=== PATIENT | male | born 1950 | race Caucasian/White ===

== ENCOUNTER 2022-10-20 09:37 | Day surgery (SDC) | payer SELFPAY ==
[2022-10-12 11:47] LABS: BASOPHILS # (AUTO) 0.1 X10'3 (0-0.2); BASOPHILS % (AUTO) 1.1 % (0-1); EOSINOPHILS # (AUTO) 0.1 X10'3 (0-0.9); EOSINOPHILS % (AUTO) 2.2 % (0-6); LYMPHOCYTES # (AUTO) 1.2 X10'3 (1.1-4.8); LYMPHOCYTES % (AUTO) 17.5 % (21-51); MEAN CORPUSCULAR HEMOGLOBIN 30.5 PG (27.0-31.0); MEAN CORPUSCULAR HGB CONC 34.2 g/dL (33.0-36.5); MEAN CORPUSCULAR VOLUME 89.4 FL (78-98); MONOCYTES # (AUTO) 0.7 X10'3 (0-0.9); NEUTROPHILS # (AUTO) 4.7 X10'3 (1.8-7.7); NEUTROPHILS % (AUTO) 69.2 % (42-75); PRE OP HEMATOCRIT 46.5 % (42.0-52.0); PRE OP HEMOGLOBIN 15.9 g/dL (14.0-17.9); PRE OP PLATELET COUNT 222 X10'3 (140-440); RED BLOOD COUNT 5.21 X10'6 (4.70-6.10); RED CELL DISTRIBUTION WIDTH 14.1 % (11.5-14.5)
[2022-10-12 12:11] LABS: ALBUMIN 4.2 G/DL (3.4-5.0); ALKALINE PHOSPHATASE 94 IU/L (46-116); BLOOD UREA NITROGEN 25 MG/DL (7-18); BUN/CREATININE RATIO 15.1 (5.4-32.0); CALCIUM 9.2 MG/DL (8.5-10.1); CHLORIDE 103 MMOL/L (99-107); CREATININE 1.66 MG/DL (0.60-1.10); PRE OP ALT 30 U/L (30-65); PRE OP ANION GAP 8 (8-16); PRE OP AST 29 U/L (10-37); PRE OP BILIRUB, TOTAL 0.4 MG/DL (0.0-1.0); PRE OP POTASSIUM 4.4 MMOL/L (3.4-5.1); PRE OP SODIUM 140 MMOL/L (135-145); TOTAL CARBON DIOXIDE 29.2 MMOL/L (24-32); TOTAL PROTEIN 8.4 G/DL (6.4-8.2); eGFR 41 ML/MIN
[2022-10-12 12:15] LABS: PRE OP GLUCOSE 220 MG/DL (70-104)
[2022-10-20] VITALS (15 sets, daily range): BP systolic 130–159; BP diastolic 73–109
[~2022-10-20] VITALS: Ht 177.8 cm; Wt 97.4 kg
[~2022-10-20 09:37] MED LIST: ASPI-1265 PO; LANTUS SQ; LIDOcaine 1% 30ml preserv. free vial ONE; METF-438 PO; TETRACAINE 0.5% 4 ML OPHTHALMIC DROPS ONE; ceFAZolin inj. 2,000 MG in dextrose 5%-water 100 ML IV ONE; epiNEPHrine 1 mg/ml inj ONE; famotidine 20mg tablet PO ONE; ringers solution, lacted 1,000 ML IV SCH
[2022-10-20] MEDS ORDERED: HYDROmorphone/PF 0.2 MG/ML SYRINGE IV PRN ×2 (10:50)
[2022-10-20] MEDS ORDERED: ringers solution, lacted 1,000 ML IV SCH (10:50)
[2022-10-20] MEDS ORDERED: morphine 2 MG/ML inj. syringe IV PRN (10:50)
[2022-10-20] MEDS ORDERED: ondansetron/PF 4mg/2ml inj IV PRN (10:50)
[2022-10-20] MEDS ORDERED: sevoflurane 250ml liquid IH ONE (10:54)
[2022-10-20] MEDS ORDERED: albuterol 60 PUFF/8GM Inhaler IH ONE (10:54)
[2022-10-20] MEDS ORDERED: fentaNYL/PF 50MCG/1 ML 2ML syringe ONE (11:01)
[2022-10-20] MEDS ORDERED: mineral oil/petrolatum ophthal oint EACHEYE ONE (11:34)
[2022-10-20] MEDS ORDERED: LIDOcaine 1% w/EPI 1:100,000 30ml vial (MDV) IJ ONE (11:34)
--- NOTE | 2022-10-20 12:16 | NUR ---
Received from OR via [facility], accompanied by Anesthesiologist and report given by KATY Anesthesiologist. PATIENT WAKING UP, DENIES PAIN, VSS, 20G PIV TO RIGHT FOREARM, BILATERAL UPPER LID SUTURES DRESSING C/D/I. Addendum: 10/20/22 at 1252 by Esau Mobley RN Amended: Links added.
[2022-10-20] MEDS ORDERED: hydrALAZINE 20mg/ml inj. IV PRN (12:35)
[2022-10-20] MEDS ORDERED: dexamethasone sod phosphate 4mg/ml inj. ONE (12:55)
[2022-10-20] MEDS ORDERED: propofol inj 20 ML IV ONE (12:55)
[2022-10-20] MEDS ORDERED: LIDOcaine 1%/PF 5ML 10 MG/ML VIAL ONE (12:55)
[2022-10-20] MEDS ORDERED: ondansetron/PF 4mg/2ml inj ONE (12:55)
--- NOTE | 2022-10-20 14:28 | NUR ---
ALL DISCHARGE CRITERIA HAS BEEN MET. VSS, PAIN AT A TOLERABLE LEVEL, ABLE TO SAFELY AMBULATE AND TRANSFER SELF. IV TAKEN OUT WITHOUT ANY COMPLICATIONS. ALL DISCHARGE INSTRUCTIONS COVERED WITH PATIENT AND ALL QUESTIONS ANSWERED. PATIENT TAKEN OUT VIA WHEELCHAIR WITH ALL BELONGINGS TO PERSONAL VEHICLE WHERE FRIEND DROVE PATIENT HOME. Addendum: 10/20/22 at 1433 by Esau Mobley RN Amended: Links added. Addendum: 10/20/22 at 1442 by Esau Mobley RN ALL DISCHARGE CRITERIA HAS BEEN MET. VSS, PAIN AT A TOLERABLE LEVEL, ABLE TO SAFELY AMBULATE AND TRANSFER SELF. IV TAKEN OUT WITHOUT ANY COMPLICATIONS. ALL DISCHARGE INSTRUCTIONS COVERED WITH PATIENT AND ALL QUESTIONS ANSWERED. PATIENT TAKEN OUT VIA WHEELCHAIR WITH ALL BELONGINGS TO PERSONAL VEHICLE WHERE FAMILY DROVE PATIENT HOME.
== END 2022-10-20 14:36 | disposition home or self-care (01) ==
LOC: PAS 09:37
PROVIDERS: ATTEND Specialist
DX: Z41.1 Encounter for cosmetic surgery (principal); E11.9 Type 2 diabetes mellitus without complications; G47.33 Obstructive sleep apnea (adult) (pediatric); Z72.89 Other problems related to lifestyle; Z98.890 Other specified postprocedural states; Z79.84 Long term (current) use of oral hypoglycemic drugs; Z79.82 Long term (current) use of aspirin; Z79.899 Other long term (current) drug therapy; Z87.891 Personal history of nicotine dependence
CPT/HCPCS: 15821; 21282; 36415; 80053; 82948; 85025; A6402; J0171; J0360; J0690; J1100; J1170; J2270; J2405; J2704; J3010; J3490; J7030; J7060; J7120; Z7506; Z7508; Z7512; A4215; A4618; A6410; A6449; A7000

== ENCOUNTER 2024-05-31 10:15 | Inpatient (IN) | payer OTHER, MEDICARE ==
[~2024-05-31] VITALS: Ht 177.8 cm; Wt 105.4 kg
[~2024-05-31 10:15] MED LIST changes: +LACT1CAP60 PO; -LIDOcaine 1% 30ml preserv. free vial ONE; +LISI20TA28 PO; +PANT-47 PO; +SYN0.088T PO; -TETRACAINE 0.5% 4 ML OPHTHALMIC DROPS ONE; -ceFAZolin inj. 2,000 MG in dextrose 5%-water 100 ML IV ONE; -epiNEPHrine 1 mg/ml inj ONE; -famotidine 20mg tablet PO ONE; -ringers solution, lacted 1,000 ML IV SCH
[2024-05-31 11:12] LABS: BASOPHILS # (AUTO) 0.1 X10'3 (0-0.2); BASOPHILS % (AUTO) 0.8 % (0-1); EOSINOPHILS # (AUTO) 0.3 X10'3 (0-0.9); EOSINOPHILS % (AUTO) 3.2 % (0-6); HEMATOCRIT 42.1 % (42.0-52.0); HEMOGLOBIN 14.2 g/dl (14.0-17.9); LYMPHOCYTES # (AUTO) 1.3 X10'3 (1.1-4.8); LYMPHOCYTES % (AUTO) 13.6 % (21-51); MEAN CORPUSCULAR HEMOGLOBIN 30.8 PG (27.0-31.0); MEAN CORPUSCULAR HGB CONC 33.6 g/dL (33.0-36.5); MEAN CORPUSCULAR VOLUME 91.5 FL (78-98); MEAN PLATELET VOLUME 8.4 FL (7.4-10.4); MONOCYTES # (AUTO) 0.9 X10'3 (0-0.9); MONOCYTES % (AUTO) 9.7 % (2-12); NEUTROPHILS # (AUTO) 6.9 X10'3 (1.8-7.7); NEUTROPHILS % (AUTO) 72.7 % (42-75); PLATELET COUNT 338 X10'3 (140-440); WHITE BLOOD COUNT 9.4 X10'3 (4.5-11.0)
[2024-05-31 11:18] LABS: ALBUMIN 3.1 G/DL (3.4-5.0); ANION GAP 10 (8-16); BLOOD UREA NITROGEN 41 MG/DL (7-18); BUN/CREATININE RATIO 17.6 (10.0-20.0); CALCIUM 9.6 MG/DL (8.5-10.1); CHLORIDE 101 MMOL/L (99-107); CREATININE 2.33 MG/DL (0.60-1.10); GLUCOSE 130 MG/DL (70-104); POTASSIUM 4.3 MMOL/L (3.5-5.1); SODIUM 136 MMOL/L (135-145); TOTAL CARBON DIOXIDE 25.3 MMOL/L (24-32); eCRCL 29 ML/MIN; eGFR 28 ML/MIN
[2024-05-31 12:26] LABS: BILIRUBIN,URINE NEGATIVE (Neg); CLARITY,URINE CLEAR (Clear); COLOR,URINE YELLOW (Yellow); GLUCOSE, URINE NEGATIVE (Neg); KETONES,URINE NEGATIVE (Neg); LEUKOCYTE ESTERASE ,URINE NEGATIVE (Neg); NITRITES, URINE NEGATIVE (Neg); OCCULT BLOOD,URINE NEGATIVE (Neg); PROTEIN,URINE NEGATIVE (Neg); UROBILINOGEN,URINE 0.2 E.U/dL (0.2-1.0)
[2024-05-31] MEDS: normal saline 1000ML IV soln IV ONE (12:28)
[2024-05-31 12:32] LABS: UA COLLECTION TYPE CLN CATCH MIDSTREAM
[2024-05-31] MEDS: vancomycin/NS 1 GM ADD-VANTAGE 250 ML X 1 DOSE IV ONE (12:44)
[2024-05-31] MEDS: cefazolin 2gm/D5W 100mL 100 ML IV ONE (14:26)
[2024-05-31] MEDS: enoxaparin 40mg/0.4ml syringe SUBCUT SCH (14:40)
[2024-05-31] MEDS ORDERED: ondansetron/PF 4mg/2ml inj IV PRN (14:40)
[2024-05-31] MEDS ORDERED: mag hydrox/Alum hydrox/simeth 30ml oral suspension PO PRN (14:40)
[2024-05-31] MEDS ORDERED: potassium Cl 20 mEq SR tablet PO PRN ×2 (14:40)
[2024-05-31] MEDS ORDERED: HYDROcodone/acetaminophen 5mg/325mg tablet PO PRN (14:40)
[2024-05-31] MEDS ORDERED: acetaminophen 325mg tablet PO PRN (14:40)
[2024-05-31] MEDS ORDERED: acetaminophen 650mg rectal suppository RC PRN (14:40)
[2024-05-31] MEDS: docusate sod 100mg capsule PO SCH (16:21)
[2024-05-31] MEDS ORDERED: LANTUS SUBCUT (18:17)
[2024-05-31 19:10] VITALS: BP 134/68; PULSE 65; RESP 16; TEMP 97.9; O2SAT 96
[2024-05-31] MEDS: lisinopril 20mg tablet PO SCH (19:15)
[2024-05-31] MEDS ORDERED: levoTHYROXINE 112mcg tablet PO SCH (19:15)
[2024-05-31] MEDS ORDERED: DEXTROSE 15 GM of carb/4 tabs (each vial/BOTTLE has 4 tablets) PO PRN ×2 (19:20)
[2024-05-31] MEDS ORDERED: dextrose 50%-water 50ml dispensing syringe IV PRN ×2 (19:20)
[2024-05-31] MEDS ORDERED: glucagon, human recombinant 1mg kit SUBCUT PRN (19:20)
[2024-05-31 20:00] VITALS: RESP 18; O2SAT 97
[2024-05-31] MEDS ORDERED: non-formulary drug (Metformin HCl 1 TAB) PO SCH (20:00)
[2024-05-31 20:39] LABS: HEMOGLOBIN A1C 7.6 % (4.5-6.2)
[2024-05-31] MEDS: INSULIN LISPRO 100 UNIT/ML INSULN.PEN MULTI-DOSE SQ SCH (21:00)
[2024-05-31 22:00] VITALS: BP 139/72; PULSE 70; RESP 18; TEMP 97.2; O2SAT 96
[2024-05-31] MEDS: aspirin 81mg tab.chew PO SCH (22:35)
[2024-05-31] MEDS: insulin glargine (Lantus) pen - multi-dose SQ SCH (22:35)
[2024-05-31] MEDS: levoTHYROXINE 25mcg tablet PO SCH (22:36)
[2024-06-01] VITALS (7 sets, daily range): BP systolic 122–150; BP diastolic 71–83; PULSE 55–80; RESP 15–20; TEMP 97.3–98.3; O2SAT 95–98
[2024-06-01] MEDS: normal saline 1000ml 1,000 ML IV SCH (05:36)
[2024-06-01 06:05] LABS: BASOPHILS # (AUTO) 0.1 X10'3 (0-0.2); BASOPHILS % (AUTO) 1.1 % (0-1); EOSINOPHILS # (AUTO) 0.5 X10'3 (0-0.9); EOSINOPHILS % (AUTO) 7.1 % (0-6); HEMATOCRIT 37.6 % (42.0-52.0); HEMOGLOBIN 12.3 g/dl (14.0-17.9); LYMPHOCYTES # (AUTO) 1.2 X10'3 (1.1-4.8); LYMPHOCYTES % (AUTO) 18.2 % (21-51); MEAN CORPUSCULAR HEMOGLOBIN 29.9 PG (27.0-31.0); MEAN CORPUSCULAR HGB CONC 32.7 g/dL (33.0-36.5); MEAN CORPUSCULAR VOLUME 91.5 FL (78-98); MEAN PLATELET VOLUME 8.6 FL (7.4-10.4); MONOCYTES # (AUTO) 0.7 X10'3 (0-0.9); MONOCYTES % (AUTO) 10.7 % (2-12); NEUTROPHILS % (AUTO) 62.9 % (42-75); PLATELET COUNT 287 X10'3 (140-440); RED BLOOD COUNT 4.11 X10'6 (4.70-6.10); RED CELL DISTRIBUTION WIDTH 14.7 % (11.5-14.5); WHITE BLOOD COUNT 6.4 X10'3 (4.5-11.0)
[2024-06-01 06:09] LABS: ALANINE AMINOTRANSFERASE 16 U/L (12-78); ALBUMIN 2.5 G/DL (3.4-5.0); ALBUMIN/GLOBULIN RATIO 0.6 (1.1-1.5); ALKALINE PHOSPHATASE 81 IU/L (46-116); ANION GAP 8 (8-16); ASPARTATE AMINO TRANSFERASE 19 U/L (10-37); BILIRUBIN,TOTAL 0.2 MG/DL (0.1-1.0); BLOOD UREA NITROGEN 29 MG/DL (7-18); BUN/CREATININE RATIO 18.2 (10.0-20.0); CALCIUM 8.6 MG/DL (8.5-10.1); CHLORIDE 106 MMOL/L (99-107); CREATININE 1.59 MG/DL (0.60-1.10); GLUCOSE 201 MG/DL (70-104); MAGNESIUM 1.8 MG/DL (1.5-2.4); PHOSPHORUS 2.9 MG/DL (2.3-4.5); POTASSIUM 4.5 MMOL/L (3.5-5.1); SODIUM 138 MMOL/L (135-145); THYROID STIMULATING HORMONE 5.05 ulU/ml (0.34-4.50); TOTAL CARBON DIOXIDE 24.5 MMOL/L (24-32); TOTAL PROTEIN 6.9 G/DL (6.4-8.2); eCRCL 43 ML/MIN; eGFR 43 ML/MIN
[2024-06-01] MEDS: CefTRIAXone/D5W-Rocephin 1gm 50 ML IV SCH (07:41)
[2024-06-01] MEDS: levoTHYROXINE 112mcg tablet PO SCH (07:42)
[2024-06-01] MEDS: vancomycin/NS 1 GM ADD-VANTAGE 250 ML IV SCH (12:21)
[2024-06-01] MEDS: lisinopril 5mg tablet PO SCH (13:57)
[2024-06-01] MEDS ORDERED: VANCOMYCIN 750MG IV in NS 250 ML IV SCH (14:00)
[2024-06-01] MEDS ORDERED: INSU300I SQ (14:05)
[2024-06-01] MEDS ORDERED: NOVLG SQ ×2 (14:05)
[2024-06-01] MEDS: metFORMIN 500mg tablet PO SCH (17:36)
[2024-06-01] MEDS: JUVEN Smoothie Arginine/Glut./Ca2+Bmb (Juven 19.3pkt) 240ml cup PO SCH (17:36)
[2024-06-01] MEDS: TYPE IN GENERIC & BRAND NAME OF PATIENT MED STRENGTH & FORM SQ SCH (17:54)
[2024-06-02 06:42] VITALS: BP 140/71; PULSE 60; RESP 16; TEMP 97.4; O2SAT 97
[2024-06-02 06:50] LABS: ALANINE AMINOTRANSFERASE 27 U/L (12-78); ALBUMIN 2.5 G/DL (3.4-5.0); ALBUMIN/GLOBULIN RATIO 0.5 (1.1-1.5); ALKALINE PHOSPHATASE 80 IU/L (46-116); ANION GAP 9 (8-16); ASPARTATE AMINO TRANSFERASE 19 U/L (10-37); BASOPHILS # (AUTO) 0.1 X10'3 (0-0.2); BILIRUBIN,TOTAL 0.2 MG/DL (0.1-1.0); BLOOD UREA NITROGEN 24 MG/DL (7-18); BUN/CREATININE RATIO 17.4 (10.0-20.0); CALCIUM 8.8 MG/DL (8.5-10.1); CHLORIDE 108 MMOL/L (99-107); CREATININE 1.38 MG/DL (0.60-1.10); EOSINOPHILS # (AUTO) 0.5 X10'3 (0-0.9); GLUCOSE 105 MG/DL (70-104); HEMATOCRIT 37.1 % (42.0-52.0); HEMOGLOBIN 12.3 g/dl (14.0-17.9); LYMPHOCYTES # (AUTO) 1.2 X10'3 (1.1-4.8); LYMPHOCYTES % (AUTO) 18.3 % (21-51); MAGNESIUM 1.6 MG/DL (1.5-2.4); MEAN CORPUSCULAR HEMOGLOBIN 30.6 PG (27.0-31.0); MEAN CORPUSCULAR HGB CONC 33.2 g/dL (33.0-36.5); MEAN CORPUSCULAR VOLUME 92.3 FL (78-98); MEAN PLATELET VOLUME 8.9 FL (7.4-10.4); MONOCYTES # (AUTO) 0.7 X10'3 (0-0.9); MONOCYTES % (AUTO) 11.2 % (2-12); NEUTROPHILS # (AUTO) 4.2 X10'3 (1.8-7.7); NEUTROPHILS % (AUTO) 62.5 % (42-75); PHOSPHORUS 2.9 MG/DL (2.3-4.5); PLATELET COUNT 293 X10'3 (140-440); POTASSIUM 4.3 MMOL/L (3.5-5.1); RED BLOOD COUNT 4.02 X10'6 (4.70-6.10); SODIUM 141 MMOL/L (135-145); TOTAL CARBON DIOXIDE 24.4 MMOL/L (24-32); TOTAL PROTEIN 7.1 G/DL (6.4-8.2); WHITE BLOOD COUNT 6.7 X10'3 (4.5-11.0); eCRCL 49 ML/MIN; eGFR 51 ML/MIN
[2024-06-02] MEDS: INSULIN GLARGINE HUM REC ANLOG SQ SCH (07:55)
[2024-06-02 09:13] VITALS: RESP 18; O2SAT 98
[2024-06-02 10:00] VITALS: BP 125/68; PULSE 60; RESP 16; TEMP 97.6; O2SAT 95
[2024-06-02] MEDS: magnesium hydroxide 30ml (MOM) UD suspension PO PRN (17:43)
[2024-06-02 18:40] VITALS: BP 129/75; PULSE 56; RESP 16; TEMP 97.7; O2SAT 96
[2024-06-02 22:00] VITALS: BP 133/69; PULSE 59; RESP 14; TEMP 97; O2SAT 97
[2024-06-02] MEDS: VANCOMYCIN LEVEL IV ONE (23:30)
[2024-06-03 05:08] LABS: BASOPHILS # (AUTO) 0.1 X10'3 (0-0.2); BASOPHILS % (AUTO) 1.1 % (0-1); EOSINOPHILS # (AUTO) 0.4 X10'3 (0-0.9); EOSINOPHILS % (AUTO) 6.1 % (0-6); HEMATOCRIT 38.8 % (42.0-52.0); HEMOGLOBIN 12.4 g/dl (14.0-17.9); LYMPHOCYTES # (AUTO) 1.4 X10'3 (1.1-4.8); LYMPHOCYTES % (AUTO) 19.6 % (21-51); MEAN CORPUSCULAR HEMOGLOBIN 29.5 PG (27.0-31.0); MEAN CORPUSCULAR VOLUME 91.9 FL (78-98); MEAN PLATELET VOLUME 7.7 FL (7.4-10.4); MONOCYTES # (AUTO) 0.6 X10'3 (0-0.9); MONOCYTES % (AUTO) 9.1 % (2-12); NEUTROPHILS # (AUTO) 4.6 X10'3 (1.8-7.7); NEUTROPHILS % (AUTO) 64.1 % (42-75); PLATELET COUNT 308 X10'3 (140-440); RED BLOOD COUNT 4.22 X10'6 (4.70-6.10); RED CELL DISTRIBUTION WIDTH 15.1 % (11.5-14.5); WHITE BLOOD COUNT 7.1 X10'3 (4.5-11.0)
[2024-06-03 05:26] LABS: ALANINE AMINOTRANSFERASE 29 U/L (12-78); ALBUMIN 2.5 G/DL (3.4-5.0); ALBUMIN/GLOBULIN RATIO 0.5 (1.1-1.5); ALKALINE PHOSPHATASE 81 IU/L (46-116); ANION GAP 9 (8-16); ASPARTATE AMINO TRANSFERASE 27 U/L (10-37); BILIRUBIN,TOTAL 0.2 MG/DL (0.1-1.0); BLOOD UREA NITROGEN 19 MG/DL (7-18); BUN/CREATININE RATIO 15.4 (10.0-20.0); CALCIUM 8.7 MG/DL (8.5-10.1); CHLORIDE 109 MMOL/L (99-107); CREATININE 1.23 MG/DL (0.60-1.10); GLUCOSE 106 MG/DL (70-104); MAGNESIUM 1.5 MG/DL (1.5-2.4); PHOSPHORUS 3.1 MG/DL (2.3-4.5); POTASSIUM 4.9 MMOL/L (3.5-5.1); SODIUM 142 MMOL/L (135-145); TOTAL CARBON DIOXIDE 24.5 MMOL/L (24-32); TOTAL PROTEIN 7.1 G/DL (6.4-8.2); eCRCL 55 ML/MIN; eGFR 58 ML/MIN
[2024-06-03 06:00] VITALS: BP 154/86; PULSE 61; RESP 70; TEMP 96.6; O2SAT 96
[2024-06-03 07:54] VITALS: RESP 16
[2024-06-03 10:00] VITALS: BP 138/75; PULSE 61; RESP 16; TEMP 97.7; O2SAT 95
[2024-06-03] MEDS ORDERED: AMLO5TAB PO (11:05)
[2024-06-03] MEDS ORDERED: INSU300I SQ (11:05)
[2024-06-03] MEDS ORDERED: LINE600T12 PO (11:05)
[2024-06-03] MEDS: INSULIN GLARGINE HUM REC ANLOG SQ SCH (11:27)
[2024-06-03] MEDS ORDERED: VANCOmycin 1250MG/NS 250ml Bag 250 ML IV SCH (19:00)
[2024-06-05] MEDS ORDERED: VANCOMYCIN LEVEL IV ONE (06:30)
== END 2024-06-03 15:10 | disposition home or self-care (01) | DRG 872 ==
LOC: ER 10:16 → ED HOLD 14:50 → SUR 3N 19:05
PROVIDERS: ADMIT Registered Nurse Psychiatric/Mental Health; ATTEND Registered Nurse Psychiatric/Mental Health
DX: A41.9 Sepsis, unspecified organism (principal); N17.9 Acute kidney failure, unspecified; E87.20 Acidosis, unspecified; L97.419 Non-pressure chronic ulcer of right heel and midfoot with unspecified severity; L03.115 Cellulitis of right lower limb; E11.22 Type 2 diabetes mellitus with diabetic chronic kidney disease; E03.9 Hypothyroidism, unspecified; E86.0 Dehydration; E11.621 Type 2 diabetes mellitus with foot ulcer; R79.89 Other specified abnormal findings of blood chemistry; I12.9 Hypertensive chronic kidney disease with stage 1 through stage 4 chronic kidney disease, or unspecified chronic kidney disease; N18.30 Chronic kidney disease, stage 3 unspecified; Z79.4 Long term (current) use of insulin; Z79.84 Long term (current) use of oral hypoglycemic drugs
CPT/HCPCS: 36415; 70250; 70551; 71045; 73718; 80048; 80053; 80202; 81003; 82948; 83036; 83605; 83735; 84100; 84145; 84443; 85025; 87040; 87081; 93005; 99285; A6449; G0378; J0690; J0696; J1650; J1815; J3370; J7030; J7040

== ENCOUNTER 2024-10-15 12:36 | Inpatient (IN) | payer OTHER, MEDICARE ==
[~2024-10-15] VITALS: Ht 177.8 cm; Wt 113.7 kg
[~2024-10-15 12:36] MED LIST changes: +AMLO5TAB PO; +INSU300I SQ; -LACT1CAP60 PO; -LANTUS SQ; -LISI20TA28 PO; -METF-438 PO; -PANT-47 PO
[2024-10-15 13:34] LABS: BASOPHILS # (AUTO) 0.1 X10'3 (0-0.2); BASOPHILS % (AUTO) 1.1 % (0-1); EOSINOPHILS # (AUTO) 0.1 X10'3 (0-0.9); EOSINOPHILS % (AUTO) 1.2 % (0-6); HEMATOCRIT 42.9 % (42.0-52.0); HEMOGLOBIN 14.4 g/dl (14.0-17.9); LYMPHOCYTES # (AUTO) 1.2 X10'3 (1.1-4.8); LYMPHOCYTES % (AUTO) 13.6 % (21-51); MEAN CORPUSCULAR HEMOGLOBIN 30.2 PG (27.0-31.0); MEAN CORPUSCULAR HGB CONC 33.6 g/dL (33.0-36.5); MEAN CORPUSCULAR VOLUME 89.8 FL (78-98); MEAN PLATELET VOLUME 8.7 FL (7.4-10.4); MONOCYTES # (AUTO) 0.6 X10'3 (0-0.9); MONOCYTES % (AUTO) 7.5 % (2-12); NEUTROPHILS # (AUTO) 6.6 X10'3 (1.8-7.7); NEUTROPHILS % (AUTO) 76.6 % (42-75); PLATELET COUNT 249 X10'3 (140-440); RED BLOOD COUNT 4.77 X10'6 (4.70-6.10); RED CELL DISTRIBUTION WIDTH 14.6 % (11.5-14.5); WHITE BLOOD COUNT 8.6 X10'3 (4.5-11.0)
[2024-10-15 14:02] LABS: ALANINE AMINOTRANSFERASE 76 U/L (12-78); ALBUMIN 3.5 G/DL (3.4-5.0); ALBUMIN/GLOBULIN RATIO 0.7 (1.1-1.5); ALKALINE PHOSPHATASE 99 IU/L (46-116); ANION GAP 12 (8-16); ASPARTATE AMINO TRANSFERASE 45 U/L (10-37); BILIRUBIN,TOTAL 0.4 MG/DL (0.1-1.0); BLOOD UREA NITROGEN 35 MG/DL (7-18); BUN/CREATININE RATIO 17.8 (10.0-20.0); CALCIUM 8.4 MG/DL (8.5-10.1); CHLORIDE 102 MMOL/L (99-107); CREATININE 1.97 MG/DL (0.60-1.10); GLUCOSE 182 MG/DL (70-104); POTASSIUM 4.4 MMOL/L (3.5-5.1); SODIUM 138 MMOL/L (135-145); TOTAL CARBON DIOXIDE 23.8 MMOL/L (24-32); TOTAL PROTEIN 8.4 G/DL (6.4-8.2); eCRCL 34 ML/MIN; eGFR 33 ML/MIN
[2024-10-15 14:06] LABS: PRO BRAIN NATRIURETIC PEPTIDE 35 PG/ML (0-125)
[2024-10-15] MEDS ORDERED: INDOCYANINE GREEN 25 MG/10 ML VIAL IV ONE (15:15)
[2024-10-15] MEDS: normal saline 1000ML IV soln IVB ONE (15:46)
[2024-10-15] MEDS ORDERED: glucagon, human recombinant 1mg kit SUBCUT PRN (17:50)
[2024-10-15] MEDS ORDERED: dextrose 50%-water 50ml dispensing syringe IV PRN ×2 (17:50)
[2024-10-15] MEDS ORDERED: magnesium sulf-water 4G/100mL 100 ML IV PRN (17:50)
[2024-10-15] MEDS ORDERED: magnesium sulf-water 2g/50mL 50 ML IV PRN (17:50)
[2024-10-15] MEDS ORDERED: magnesium Cl slow-release 64mg tablet PO PRN (17:50)
[2024-10-15] MEDS ORDERED: DEXTROSE 15 GM of carb/4 tabs (each vial/BOTTLE has 4 tablets) PO PRN ×2 (17:50)
[2024-10-15] MEDS ORDERED: ondansetron 4mg rapidly disintigrating tab PO PRN (17:50)
[2024-10-15] MEDS ORDERED: ondansetron/PF 4mg/2ml inj IV PRN (17:50)
[2024-10-15] MEDS ORDERED: potassium Cl 20 mEq SR tablet PO PRN ×2 (17:50)
[2024-10-15] MEDS ORDERED: potassium Cl 40MEQ/1/2NS 520ml 520 ML IV PRN (17:50)
[2024-10-15] MEDS: INSULIN LISPRO 100 UNIT/ML INSULN.PEN MULTI-DOSE SQ SCH ×2 (18:00→21:00)
[2024-10-15 18:05] LABS: HEMOGLOBIN A1C 9.6 % (4.5-6.2)
[2024-10-15] MEDS: PERFLUTREN PROTEIN-A MICROSPHR (Optison) 0.22 MG/ML 3ML VIAL IV ONE (18:24)
[2024-10-15] MEDS: ringers solution, lacted 1,000 ML IV SCH (18:28)
[2024-10-15] MEDS: K and/or MAG REPLACEMENT MC SCH (20:00)
[2024-10-15] MEDS: atorvastatin 20mg tablet PO SCH (20:09)
[2024-10-15] MEDS: tamsulosin 0.4mg capsule PO SCH (20:09)
[2024-10-15 22:00] VITALS: BP_SYST 141; BP_SYST 145; BP_SYST 151; BP_DIAS 82; BP_DIAS 86; BP_DIAS 90; PULSE 69; PULSE 95; RESP 18; TEMP 97.4; O2SAT 95
[2024-10-15] MEDS ORDERED: LISI5TAB22 PO (22:32)
[2024-10-15] MEDS ORDERED: METF-436 PO (22:38)
[2024-10-15] MEDS ORDERED: FLO0.4C PO (22:38)
[2024-10-15] MEDS ORDERED: INSU300I SQ (22:41)
[2024-10-15] MEDS ORDERED: NOVLG SQ (22:42)
[2024-10-16 04:59] LABS: BASOPHILS # (AUTO) 0.1 X10'3 (0-0.2); BASOPHILS % (AUTO) 1.1 % (0-1); EOSINOPHILS # (AUTO) 0.2 X10'3 (0-0.9); EOSINOPHILS % (AUTO) 2.3 % (0-6); HEMATOCRIT 39.8 % (42.0-52.0); HEMOGLOBIN 13.4 g/dl (14.0-17.9); LYMPHOCYTES # (AUTO) 1.4 X10'3 (1.1-4.8); LYMPHOCYTES % (AUTO) 18.3 % (21-51); MEAN CORPUSCULAR HEMOGLOBIN 30.2 PG (27.0-31.0); MEAN CORPUSCULAR HGB CONC 33.6 g/dL (33.0-36.5); MEAN CORPUSCULAR VOLUME 89.6 FL (78-98); MEAN PLATELET VOLUME 8.9 FL (7.4-10.4); MONOCYTES # (AUTO) 0.7 X10'3 (0-0.9); MONOCYTES % (AUTO) 8.6 % (2-12); NEUTROPHILS # (AUTO) 5.3 X10'3 (1.8-7.7); NEUTROPHILS % (AUTO) 69.7 % (42-75); PLATELET COUNT 205 X10'3 (140-440); RED BLOOD COUNT 4.44 X10'6 (4.70-6.10); RED CELL DISTRIBUTION WIDTH 14.6 % (11.5-14.5); WHITE BLOOD COUNT 7.6 X10'3 (4.5-11.0)
[2024-10-16 05:19] LABS: ALANINE AMINOTRANSFERASE 67 U/L (12-78); ALBUMIN/GLOBULIN RATIO 0.7 (1.1-1.5); ALKALINE PHOSPHATASE 85 IU/L (46-116); ANION GAP 6 (8-16); ASPARTATE AMINO TRANSFERASE 34 U/L (10-37); BILIRUBIN,TOTAL 0.4 MG/DL (0.1-1.0); BLOOD UREA NITROGEN 30 MG/DL (7-18); BUN/CREATININE RATIO 21.4 (10.0-20.0); CALCIUM 8.8 MG/DL (8.5-10.1); CHLORIDE 108 MMOL/L (99-107); CHOL/HDL RATIO 5.4 (0.00-4.99); CHOLESTEROL 173 MG/DL (0-200); GLUCOSE 91 MG/DL (70-104); HDL CHOLESTEROL 32 MG/DL (35-60); LDL CHOLESTEROL 91 MG/DL (50-100); MAGNESIUM 1.7 MG/DL (1.5-2.4); PHOSPHORUS 3.5 MG/DL (2.3-4.5); POTASSIUM 4.1 MMOL/L (3.5-5.1); SODIUM 142 MMOL/L (135-145); THYROID STIMULATING HORMONE 9.11 ulU/ml (0.34-4.50); TOTAL CARBON DIOXIDE 28.3 MMOL/L (24-32); TOTAL PROTEIN 7.3 G/DL (6.4-8.2); TRIGLYCERIDES 264 MG/DL (20-135); eCRCL 48 ML/MIN; eGFR 50 ML/MIN
[2024-10-16 06:00] VITALS: BP 134/69; PULSE 86; RESP 14; TEMP 97.7; O2SAT 94
[2024-10-16] MEDS: aspirin 81mg tab.chew PO SCH (07:21)
[2024-10-16] MEDS: levoTHYROXINE 88mcg tablet PO SCH (07:22)
[2024-10-16] MEDS: lisinopril 5mg tablet PO SCH (07:22)
[2024-10-16] MEDS: insulin glargine (Lantus) pen - multi-dose SQ SCH (08:39)
[2024-10-16 09:04] LABS: FREE T4 (FREE THYROXINE) 0.77 NG/DL (0.73-1.40)
[2024-10-16 10:00] VITALS: BP_SYST 124; BP_SYST 125; BP_SYST 136; BP_DIAS 70; BP_DIAS 71; BP_DIAS 82; PULSE 55; PULSE 86; PULSE 89; RESP 16; TEMP 97.5; O2SAT 95
[2024-10-16 12:17] LABS: BILIRUBIN,URINE NEGATIVE (Neg); CLARITY,URINE CLEAR (Clear); COLOR,URINE YELLOW (Yellow); GLUCOSE, URINE NEGATIVE (Neg); KETONES,URINE NEGATIVE (Neg); LEUKOCYTE ESTERASE ,URINE NEGATIVE (Neg); NITRITES, URINE NEGATIVE (Neg); OCCULT BLOOD,URINE NEGATIVE (Neg); PH,URINE 5.5 (4.8-8.0); PROTEIN,URINE NEGATIVE (Neg); UROBILINOGEN,URINE 0.2 E.U/dL (0.2-1.0)
[2024-10-16 12:19] LABS: UA COLLECTION TYPE NON-SPECIFIED
[2024-10-16 18:00] VITALS: BP 136/72; PULSE 60; RESP 16; TEMP 98; O2SAT 95
[2024-10-16 22:00] VITALS: BP 124/64; PULSE 60; RESP 16; TEMP 98.3; O2SAT 96
[2024-10-17 04:55] LABS: BASOPHILS # (AUTO) 0.1 X10'3 (0-0.2); EOSINOPHILS # (AUTO) 0.3 X10'3 (0-0.9); EOSINOPHILS % (AUTO) 4.8 % (0-6); HEMATOCRIT 41.1 % (42.0-52.0); HEMOGLOBIN 14.2 g/dl (14.0-17.9); LYMPHOCYTES # (AUTO) 1.6 X10'3 (1.1-4.8); LYMPHOCYTES % (AUTO) 22.7 % (21-51); MEAN CORPUSCULAR HEMOGLOBIN 30.9 PG (27.0-31.0); MEAN CORPUSCULAR HGB CONC 34.5 g/dL (33.0-36.5); MEAN CORPUSCULAR VOLUME 89.8 FL (78-98); MONOCYTES # (AUTO) 0.9 X10'3 (0-0.9); MONOCYTES % (AUTO) 12.4 % (2-12); NEUTROPHILS # (AUTO) 4.1 X10'3 (1.8-7.7); NEUTROPHILS % (AUTO) 59.1 % (42-75); PLATELET COUNT 220 X10'3 (140-440); RED BLOOD COUNT 4.58 X10'6 (4.70-6.10); RED CELL DISTRIBUTION WIDTH 14.4 % (11.5-14.5); WHITE BLOOD COUNT 6.9 X10'3 (4.5-11.0)
[2024-10-17 05:20] LABS: ALANINE AMINOTRANSFERASE 63 U/L (12-78); ALBUMIN 3.2 G/DL (3.4-5.0); ALBUMIN/GLOBULIN RATIO 0.7 (1.1-1.5); ALKALINE PHOSPHATASE 99 IU/L (46-116); ANION GAP 4 (8-16); ASPARTATE AMINO TRANSFERASE 31 U/L (10-37); BILIRUBIN,TOTAL 0.4 MG/DL (0.1-1.0); BLOOD UREA NITROGEN 24 MG/DL (7-18); BUN/CREATININE RATIO 16.7 (10.0-20.0); CALCIUM 8.9 MG/DL (8.5-10.1); CHLORIDE 106 MMOL/L (99-107); CREATININE 1.44 MG/DL (0.60-1.10); GLUCOSE 194 MG/DL (70-104); MAGNESIUM 1.6 MG/DL (1.5-2.4); PHOSPHORUS 3.1 MG/DL (2.3-4.5); POTASSIUM 4.8 MMOL/L (3.5-5.1); SODIUM 140 MMOL/L (135-145); TOTAL CARBON DIOXIDE 29.8 MMOL/L (24-32); TOTAL PROTEIN 7.5 G/DL (6.4-8.2); eCRCL 46 ML/MIN; eGFR 48 ML/MIN
[2024-10-17 06:00] VITALS: BP 128/72; PULSE 54; RESP 16; TEMP 98.9; O2SAT 97
[2024-10-17 08:00] VITALS: BP_SYST 116; BP_SYST 135; BP_DIAS 77; BP_DIAS 86; BP_DIAS 90; PULSE 60; PULSE 65; PULSE 68
[2024-10-17 10:00] VITALS: BP 143/81; PULSE 45; RESP 15; TEMP 97.4; O2SAT 100
== END 2024-10-17 11:05 | disposition home or self-care (01) | DRG 73 ==
LOC: ER 12:37 → ED HOLD 16:31 → UNDOADMOB 16:31 → INTOOBSV 16:31 → ED HOLD 17:27 → OBSVTOIN 17:27 → ORTHO 4S 21:52
PROVIDERS: ADMIT Family Medicine; ATTEND Family Medicine
DX: G90.9 Disorder of the autonomic nervous system, unspecified (principal); N17.0 Acute kidney failure with tubular necrosis; E86.0 Dehydration; E11.65 Type 2 diabetes mellitus with hyperglycemia; E03.9 Hypothyroidism, unspecified; N40.0 Benign prostatic hyperplasia without lower urinary tract symptoms; E78.5 Hyperlipidemia, unspecified; Z79.82 Long term (current) use of aspirin; Z79.899 Other long term (current) drug therapy; Z85.6 Personal history of leukemia
CPT/HCPCS: 36415; 70450; 70544; 70547; 70551; 71045; 80053; 80061; 81003; 82948; 83036; 83735; 83880; 84100; 84439; 84443; 84484; 85025; 87081; 93005; 93306; 93880; 96360; 99285; A6212; G0378; J1815; J7030; J7120

== ENCOUNTER 2025-09-06 21:50 | Inpatient (IN) | payer OTHER, MEDICARE ==
[~2025-09-06] VITALS: Ht 177.8 cm; Wt 106.8 kg
[~2025-09-06 21:50] MED LIST changes: -AMLO5TAB PO; +CLOP75TA34 PO; +LISI5TAB22 PO; +LOSA25TA41 PO; +METF-436 PO; +NOVLG SQ; +ROSU20TA98 PO
[2025-09-06 22:17] LABS: MEAN PLATELET VOLUME 8.6 FL (7.4-10.4); RED CELL DISTRIBUTION WIDTH 14.2 % (11.5-14.5)
[2025-09-06 22:27] LABS: CREATININE 1.60 MG/DL (0.60-1.10); TOTAL CARBON DIOXIDE 25.1 MMOL/L (24-32); eCRCL 41 ML/MIN; eGFR 42 ML/MIN
--- NOTE | 2025-09-06 22:30 | ELECTROCARDIOGRAPH REPORT ---
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 Choco Smith Measurements Intervals [place] Rate: 72 P: 37 GA: 228 QRS: -17 QRSD: 114 T: 46 QT: 425 QTc: 466 Interpretive Statements Sinus rhythm Prolonged GA interval Borderline intraventricular conduction delay Electronically Signed On 09-11-2025 0:20:[address] Choco Smith Please click the below link to view image of tracing.
[2025-09-06 22:31] LABS: APTT 29 SECONDS (22-32); INR 1.1 INR
--- NOTE | 2025-09-06 22:31 | RADIOLOGY REPORT ---
EXAM: CT CT STROKE ALERT INDICATION: Stroke Alert TECHNIQUE: CT of the head without intravenous contrast. Radiation Dose Information: CT Dose: CTDI volume is 67.99 mGy. Dose-length product is 1516.69 mGy*cm The dose indicators for CT are the volume Computed Tomography (CT) Dose Index (CTDIvol) and the Dose Length Product (DLP), and are measured in units of mGy and mGy-cm, respectively. These indicators are not patient dose, but values generated from the CT scanner acquisition factors. The report includes radiation exposure data for exposures received during this examination. COMPARISON: CT CTA NECK/HEAD on DOS: 09/03/25, CT CT STROKE ALERT on DOS: 09/03/25, MR MRA HEAD on DOS: 10/16/24, CT CT HEAD on DOS: 10/15/24 FINDINGS: There is no evidence of acute intracranial hemorrhage, extra-axial collection, mass effect, midline shift, herniation or hydrocephalus. The ventricles, sulci and cisterns are age appropriate. The rowan-white differentiation is intact. Patchy periventricular and subcortical white matter hypoattenuation is nonspecific but may be related to small vessel ischemic disease. The visualized paranasal sinuses and mastoid air cells are clear. The surrounding soft tissues and osseous structures are unremarkable. IMPRESSION: No acute intracranial abnormality.
--- NOTE | 2025-09-06 22:33 | RADIOLOGY REPORT ---
EXAM: CT CT STROKE ALERT INDICATION: Stroke Alert TECHNIQUE: CT of the head without intravenous contrast. Radiation Dose Information: CT Dose: CTDI volume is 16.02 mGy. Dose-length product is 613.83 mGy*cm The dose indicators for CT are the volume Computed Tomography (CT) Dose Index (CTDIvol) and the Dose Length Product (DLP), and are measured in units of mGy and mGy-cm, respectively. These indicators are not patient dose, but values generated from the CT scanner acquisition factors. The report includes radiation exposure data for exposures received during this examination. COMPARISON: CT CT STROKE ALERT on DOS: 09/06/25, CT CTA NECK/HEAD on DOS: 09/03/25, CT CT STROKE ALERT on DOS: 09/03/25, MR MRA HEAD on DOS: 10/16/24, CT CT HEAD on DOS: 10/15/24 FINDINGS: HEAD There is no evidence of acute intracranial hemorrhage, extra-axial collection, mass effect, midline shift, herniation or hydrocephalus. The ventricles, sulci and cisterns are age appropriate. The rowan-white differentiation is intact. Patchy periventricular and subcortical white matter hypoattenuation is nonspecific but may be related to small vessel ischemic disease. The visualized paranasal sinuses and mastoid air cells are clear. The surrounding soft tissues and osseous structures are unremarkable. CTA HEAD AND NECK Carotid and vertebral arteries are widely patent. Anterior and posterior circulation intracranial vessels are widely patent with no significant stenosis, aneurysm, or vascular malformation. IMPRESSION: No acute intracranial abnormality. No acute vascular abnormality.
--- NOTE | 2025-09-06 22:35 | Physician Documentation ---
History of Present Illness General Chief Complaint: Stroke Alert Stated Complaint: DIZZINESS,BLURRED VISION Time Seen by MD: 22:35 History of Present Illness Initial Comments This is a 75-year-old gentleman who was just discharged from our facility after evaluation for a stroke, on Plavix and aspirin, return home, took a nap, and woke up again with a stroke symptoms of disequilibrium and dysarthria as well as mild expressive aphasia. No palliating or aggravating factors. Did not attempt to treat it. Came straight to the emergency department. No trauma. Denies any vision or hearing changes, denies any weakness, denies any loss of sensation. He denies any chest pain or difficulty breathing. Denies any nausea, vomiting and diarrhea, abdominal pain. No concern for tobacco, alcohol or illicit substances use. Medication Reconciliation Allergies: Coded Allergies: allopurinol (Verified Allergy, Unknown, 09/06/25) diphenhydramine (Verified Adverse Reaction, Unknown, highly sensitive, 09/06/25) Scheduled Aspirin (Aspirin), 1 TAB.CHEW PO DAILY Clopidogrel Bisulfate (Clopidogrel), 75 MG PO DAILY Insulin Glargine,Hum.rec.anlog (Toujeo Solostar), 80 UNITS SQ QAM, (Reported) Levothyroxine Sodium* (Synthroid*), 1 TAB PO DAILY, (Reported) Losartan Potassium (Losartan Potassium), 25 MG PO DAILY Metformin Hcl (Metformin Hcl), 1 TAB PO Q12H, (Reported) Rosuvastatin Calcium (Rosuvastatin Calcium), 1 TAB PO HS Miscellaneous Medications Insulin Aspart (Novolog), 100 UNIT SQ, (Reported) Discontinued Medications Lisinopril (Lisinopril), 1 TAB PO DAILY, (Reported) Tamsulosin Hcl (Flomax), 2 CAP PO HS, (Reported) Discontinued Reason: patient no longer taking Past Medical History Past Medical History: Hypertension, Diabetes, Hypothyroidism, Leukemia Past Surgical History: noncontributory Lives with: Spouse Lives In: Home Occupation: retired Review of Systems ROS 10 point review of systems was performed and unless noted above in HPI is negative for acute process/complaint. Physical Exam Physical Exam Vital Signs: Temperature: 97.3, Source: Temporal, Heart Rate: 77, Respiratory Rate: 16, BP: 117/96, Pulse Oximetry: 95, Weight: 106.800 Oxygen Flow Rate: 0 Physical Exam GENERAL: Awake, alert, oriented, GCS 15, no apparent distress, non-toxic appearing, answers questions, follows commands appropriately. Examined immediately upon returned from a CT scanner after activation of the level one stroke alert. Lives at the bedside. He is in bed 5. HEENT: Atraumatic, normocephalic, pupils pinpoint bilaterally, extraocular muscles intact, sclerae anicteric, mucus membranes moist, oropharynx is clear, no stridor. NECK: supple, full active range of motion, trachea midline, no thyromegaly, no lymphadenopathy, no JVD. CARDIOVASCULAR: regular rate/rhythm, no murmurs/gallops/rubs, Pulses are 2+ in all extremities and symmetric. Capillary refill less than 2 seconds. PULMONARY: Nonlabored, good air movement ,no respiratory distress, speaking in full sentences, clear to auscultation bilaterally, no wheezing, no ronchi, no rales, no accessory muscle use. GASTROINTESTINAL: Soft, non-tender, non-distended, normal active bowel sounds, no organomegaly, no pulsatile masses, no CVA tenderness. NEUROLOGIC: Lucid with normal mental status. Cranial nerves 2-12 are intact, there has preserved facial asymmetry, full extraocular range of motion, midline uvula, midline tongue, strong shrug. Bilateral upper and lower extremities are 5/5 in all major muscle groups who preserved sensation symmetrically. Normal [id number]. Gait not tested. MUSCULOSKELETAL: There is full range of motion of all extremities. There is no joint pain or joint swelling or joint erythema. There is no muscle pain or tenderness or swelling. EXTREMITIES: warm, well-perfused, no cyanosis, no clubbing, no edema, no acute deformities. Skin: warm, dry, no rashes or lesions, no jaundice, no petechiae orpurpura. No ecchymosis. PSYCHIATRIC: Normal affect, normal insight, normal concentration. Focused exam: [] Progress Results/Orders Results/Orders Orders - JAMISON SHARPE DO Monitor (09/06/25 22:05) 2 Large Bore Ivs (09/06/25 22:05) Accucheck (09/06/25 22:05) Hs Troponin I W Calculations (09/07/25 00:05) Hs Troponin I W Calculations (09/07/25 01:05) [facility] Consult (09/06/25 22:05) Electrocardiogram (09/06/25 22:03) Accucheck (09/06/25 22:03) Ct Stroke Alert (09/06/25 22:03) Hs Troponin I W Calculations (09/07/25 00:03) Hs Troponin I W Calculations (09/07/25 01:03) [facility] Consult (09/06/25 22:03) Ct Stroke Alert (09/06/25 22:05) Completed Orders - JAMISON SHARPE DO Cbc/Diff (09/06/25 22:05) Electrocardiogram (09/06/25 22:05) BMP (09/06/25 22:05) PTT (09/06/25 22:05) Pt Inr (09/06/25 22:05) Hs Troponin I W Calculations (09/06/25 22:05) Ct Stroke Alert (09/06/25 22:03) Ct Stroke Alert (09/06/25 22:05) Vital Signs 09/06/25 09/06/25 09/06/25 09/06/25 21:52 22:24 22:39 22:40 Temp 97.3 Pulse 77 69 64 69 Resp 16 13 12 12 B/P (MAP) 117/96 133/85 143/80 (101) 143/80 Pulse Ox 95 96 97 97 O2 Flow Rate 0 0 09/06/25 09/06/25 09/06/25 09/06/25 22:50 22:55 23:10 23:25 Pulse 67 62 59 Resp 14 15 12 B/P (MAP) 141/82 (101) 136/86 (103) 139/83 (101) Pulse Ox 96 95 95 O2 Flow Rate 0 0 0 Laboratory Tests Test 09/06/25 22:08 09/06/25 22:12 White Blood Count 8.1 Red Blood Count 5.07 Hemoglobin 15.5 Hematocrit 45.9 Mean Corpuscular Volume 90.6 Mean Corpuscular Hemoglobin 30.7 Mean Corpuscular Hemoglobin Concent 33.8 Red Cell Distribution Width 14.2 Platelet Count 224 Mean Platelet Volume 8.6 Neutrophils (%) (Auto) 64.6 Lymphocytes (%) (Auto) 18.9 L Monocytes (%) (Auto) 11.9 Eosinophils (%) (Auto) 3.2 Basophils (%) (Auto) 1.4 H Neutrophils # (Auto) 5.2 Lymphocytes # (Auto) 1.5 Monocytes # (Auto) 1.0 H Eosinophils # (Auto) 0.3 Basophils # (Auto) 0.1 CBC Comment Prothrombin Time 11.1 INR International Normalized Ratio 1.1 Activated Partial Thromboplast Time 29 Coagulation Comments Sodium Level 139 Potassium Level 4.4 Chloride Level 105 Carbon Dioxide Level 25.1 Anion Gap 9 Blood Urea Nitrogen 19 H Creatinine 1.60 H Estimated GFR/1.73 m2 42 BUN/Creatinine Ratio 11.9 Glucose Level 206 H Calcium Level 8.9 Troponin I High Sensitivity 12 Albumin 3.6 Chemistry Comments Glucometer 216 H EKG/XRAY/CT/US/VASC/MRI EKG : Additional Comment EKG was obtained and interpreted by myself shows sinus rhythm, rate of 72, first-degree AV block, borderline QRS of 114, no QT prolongation, normal axis, no STEMI. Medical Decision Making Additional information obtaine: old records, family Findings Facility Status: ED Holds, E process The plan was discussed with the patient, who demonstrates clear understanding of the plan and is in agreement with the plan unless otherwise noted in the chart. All questions have been answered, all concerns were addressed unless otherwise documented. I was available throughout their ED stay for frequent reassessment and questions. Differential Diagnoses (considered and possible or likely): [CVA, TIA, partial seizure, complex migraine, recrudescence of old stroke, intracranial neoplasm, hypoglycemia, electrolyte derangement] ??Differential Diagnoses (considered and unlikely, not requiring evaluation currently): [Evidence of trauma] MDM Data Please see [facility] for the following: Independent Historians and external Records Review. Historian: [Patient] Independent Historians: ?[Record review, family] Medication Management: [Reviewed medication list] Social History and determinants: [Reviewed] Please see the body of the note for the following: Any independent interpretations of ECG, imaging studies. All vitals signs/haemodynamics, ordered tests were independently reviewed and interpreted by myself. Nursing triage complaint and vitals reviewed, additional nursing notes were reviewed as available and I agree unless otherwise noted or documented in contradiction in the chart Vital Signs: Independently reviewed Labs: Independently interpreted Imaging: Independently interpreted Old Medical Records: Independently reviewed, see HPI for relevant summary and information Pulse Oximetry: [97%] interpreted as [normal on room air] by me [Floor Person: [Regular Rate, Regular rhythm, no ectopy, NSR] reviewed and interpreted by me] Additionally notably showing: [Negative hemodynamics reviewed. The patient isn't febrile, not tachycardic, no evidence of hypotension respiratory distress. CBC normal. Metabolic panel is essentially notable for CKD. Troponin is negative. Coagulation panel was unremarkable. CT head shows no acute intracranial abnormality. This is N/C angiography shows no LVO. Chest x-ray was obtained showing no acute disease] Tests considered but not ordered include: [MRI can be done on an inpatient basis] Social Determinants of Health Impact: Patient was evaluated [facility], or [facility] [place] to healthcare due to below par ratio of patient to medical providers. [] Comorbid Conditions Impacting Present Evaluation and Care/Treatment: [Recent stroke on dual antiplatelet therapy] Management Discussions with other Healthcare Providers: [Tele neurology who recommends admission for repeat MRI. Hospitalist regarding admission] Treatment and Disposition Medication Management (Given or considered): [TNKase has been considerably, however with the patient's deficits some minor, he has a recent stroke.]. See EMR for details Consideration for Hospitalization/Escalation/Deescalation of Care: Admission for observation is necessary for further workup pulsation stroke-like symptoms. ?ED Course:?[No clinical deterioration] ?Shared decision making:?[] Code status:?FULL Please see the full Electronic Medical Record for full details of nursing documentation, medications list, other records of complete past medical history and conditions, vital signs, laboratory studies, and any radiologic study interpretations by radiologists. Portions of this note were completed using Graspr dictation software and as a result there may exist minor errors in spelling. I have reviewed elements of past family and social history and agree as included in note. Differential Diagnosis See body of the main note for differential diagnosis Departure Disposition: 09 ADMITTED INPATIENT Impression: Primary Impression: Stroke-like symptoms Additional Impressions: Disequilibrium Expressive aphasia Referrals: NO PRIMARY CARE PROVIDER (PCP) Critical Care Note Critical Care Note CRITICAL CARE TIME: [35] minutes Treatments/Evaluations: Close monitoring and treatment of unstable vital signs, cardiorespiratory, and neurologic status, while maintaining tight balance of fluid, respiratory, and cardiac interventions. This time includes discussing the case with the patient and the patients family. This time does not include all procedures stated elsewhere in this record. This time also includes reviewing o ld records, labs and radiological studies. This time includes examining and re- examining the patient. Additionally, this time also includes arranging care with admitting and consulting physicians. Signature Scribe Signature: No scribe Attestation: The note accurately reflects work and decisions made by me.Jamison Sharpe, 09/06/25 22:32 JAMISON SHARPE DO Sep 06, 2025 22:35
--- NOTE | 2025-09-06 23:11 | RADIOLOGY REPORT ---
CHEST RADIOGRAPH INDICATION: STROKE ALERT TECHNIQUE: Single frontal view of the chest was obtained COMPARISON: DI CHEST,SINGLE VIEW on DOS: 09/03/25, DI CHEST,SINGLE VIEW on DOS: 10/15/24, DI CHEST,SINGLE VIEW on DOS: 05/31/24, CT CT CHEST ABDOMEN PELVIS on DOS: 09/23/23, DI CHEST,SINGLE VIEW on DOS: 09/23/23 FINDINGS: Lungs and pleural spaces are clear. Cardiac silhouette and joni are within normal limits. Bones and soft tissues demonstrate no significant abnormality. IMPRESSION: No acute disease.
--- NOTE | 2025-09-06 23:53 | [facility] CONSULT REPORT ---
[facility] [facility] Note # Demographics Consult Type: Acute Stroke Level 1 (0-4.5 hrs) Patient Location: Emergency Room First Name: LAURIE Last Name: CATRACHITO Date of : 1950 Age: 75 Gender: Male Facility: [facility] Time of Initial Page (): 09/06/2025 22:12 First Contact with Site (): 09/06/2025 22:18 # HPI History: 75 year old male with PMH of DM, HTN, that I was requested to evaluate for acute stroke. During my evaluation the patient reports that he was discharged today from the hospital. When he woke up he felt some worsening symptoms. He reports that he was experiencing a sense that his speech was off. When he's sitting down and he gets up to walk to go somewhere he feels dizzy. He has to sit down immediately. He reports no change in his symptoms. He does report that these symptoms were the same symptoms for which he came during his initial hospitalization. # Scores Time of exam and NIHSS (): 09/06/2025 22:39 Level of Consciousness 1a: [0] = Alert; keenly responsive LOC Questions 1b: [0] = Answers both questions correctly LOC Commands 1c: [0] = Performs both tasks correctly Best Gaze 2: [0] = Normal Visual 3: [0] = No visual loss Facial Palsy 4: [0] = Normal symmetrical movements Motor Arm Left 5a: [0] = No drift Motor Arm Right 5b: [0] = No drift Motor Leg Left 6a: [0] = No drift Motor Leg Right 6b: [0] = No drift Limb Ataxia 7: [0] = Absent Sensory 8: [0] = Normal Best Language 9: [0] = No aphasia Dysarthria 10: [0] = Normal Extinction and Inattention 11: [0] = No abnormality NIHSS Total: 0 # ROS Neurologic: - see HPI # Data Time Head CT personally read by me (): 09/06/2025 22:[address]: - no bleed - preliminarily reviewed by me, please refer to radiology read for official reading Time CTA personally reviewed by me (): 09/06/2025 22:28 CTA Head: - no large vessel occlusion - preliminarily reviewed by me, please refer to radiology read for official reading # Assessment Impression: - Ischemic Stroke (Acute) The patient returns with recurrent symptoms similar to what he experienced before. He is on dual antiplatelet therapy already and is not a candidate for thrombolysis given his recent stroke. # Plan Thrombolytic/Intervention: NOT IV Thrombolysis or IA Intervention candidate Thrombolytic Exclusion (< 3 hour window): - stroke within 3 months Intraarterial Exclusion: - no large vessel occlusion (LVO) Target Blood Pressure: - SBP < 180 - DBP < 105 Labs: - CBC - comprehensive metabolic panel - lipid panel Imaging: (urgency: routine): - MRI Brain without contrast Medication: - aspirin 81 mg PO daily - clopidogrel (Plavix) 75 mg PO daily Other: - If patient has any neurological deterioration please call me back immediately Additional Recommendations: SUMMARY: == continue dual antiplatelet therapy == admit for MRI Brain without contrast Disposition: admit # Logistics Attestation of consult completion: The patient is located at: [facility]. Facility staff participated in the visit. I performed this telemedicine visit from my offsite office utilizing interactive 2 way audio and visual telecommunication technology at the request of the onsite emergency room provider. Consent: Verbal consent was obtained from the patient and/or family for this encounter. Total time spent in telemedicine encounter: I spent 35 minutes reviewing clinical data and/or imaging, obtaining history, examining the patient, communicating with the onsite care team, and in preparation of this report. Critical Care time: 20 minutes of this encounter were critical care time. Due to a high probability of clinically significant, life-threatening neurologic deterioration, the patient required my highest level of preparedness to intervene emergently. I spent this critical care time managing the patient in conjunction with on-site providers who requested my consultation. In addition to the above, this critical care time included recommendation and review of studies, including imaging; arranging an urgent treatment and management plan with on-site providers; evaluation of patient's response to treatment; and documentation. This critical care time was performed to assess and manage the high probability of imminent, life-threatening deterioration that could result in neurologic catastrophe. # Demographics First Name: LAURIE Last Name: [facility] Facility: [facility] Electronically signed at 09/06/2025 23:52 ([place] Time) by Duane Hendricks MD
[2025-09-07] MEDS ORDERED: magnesium sulf-water 2g/50mL 50 ML IV PRN (00:20)
[2025-09-07] MEDS ORDERED: mag hydrox/Alum hydrox/simeth 30ml oral suspension PO PRN (00:20)
[2025-09-07] MEDS ORDERED: ondansetron/PF 4mg/2ml inj IV PRN (00:20)
[2025-09-07] MEDS ORDERED: potassium Cl 20 mEq SR tablet PO PRN ×2 (00:20)
[2025-09-07] MEDS ORDERED: magnesium Cl slow-release 64mg tablet PO PRN (00:20)
[2025-09-07] MEDS ORDERED: magnesium sulf-water 4G/100mL 100 ML IV PRN (00:20)
[2025-09-07] MEDS ORDERED: potassium Cl 40MEQ/1/2NS 520ml 520 ML IV PRN (00:20)
[2025-09-07] MEDS ORDERED: magnesium hydroxide 30ml (MOM) UD suspension PO PRN (00:20)
--- NOTE | 2025-09-07 00:33 | HISTORY AND PHYSICAL-Residence ---
History & Physical Providers to CC Resident Creating Document: MARTINAABIODUNLILY PIERRE RES ~ History of Present Illness Reason for Admit\Complaint: Slurred speech History of Present Illness 75-year-old male with history of TIA, diabetes mellitus type 2, hairy cell leukemia in remission, sleep apnea and hypothyroidism came to the ER with complaints of slurred speech. He was recently admitted for TIA and discharged today morning on aspirin and Plavix. He was fine when he went home, he took a nap and he woke up at 7:30 p.m. with symptoms of slurred speech and dizziness on walking. He denies motor deficit, loss of sensation, confusion, syncope, vision changes, loss of bladder control. He denies chest pain, palpitations, nausea, vomiting, fever, chills, shortness of breath, burning micturition, frequency, urgency. His PCP is at the [facility] He sees discharge specialist for diabetes mellitus type 2 He does not follow up with his oncologist currently He lives with his at home He can ambulate independently Allergies: Coded Allergies: allopurinol (Verified Allergy, Unknown, 09/06/25) diphenhydramine (Verified Adverse Reaction, Unknown, highly sensitive, 09/06/25) Home Medications Home Medications Active Rosuvastatin Calcium 20 Mg Tablet 1 Tab PO HS 30 Days Losartan Potassium 25 Mg Tablet 25 Mg PO DAILY 30 Days Clopidogrel (Clopidogrel Bisulfate) 75 Mg Tablet 75 Mg PO DAILY 30 Days Do not stop medication unless instructed by prescriber. Aspirin 81 Mg Tab.chew 1 Tab.chew PO DAILY 19 Days Reported Novolog (Insulin Aspart) 100 Unit/Ml (3 Ml) Insuln.pen 100 Unit SQ Toujeo Solostar (Insulin Glargine,Hum.rec.anlog) 300 Unit/Ml (1.5 Ml) Insuln.pen 80 Units SQ QAM Metformin Hcl 500 Mg Tablet 1 Tab PO Q12H 30 Days Synthroid* (Levothyroxine Sodium) 88 Mcg Tablet 1 Tab PO DAILY 30 Days Past Medical History Past Medical History TIA Diabetes mellitus type 2 Diabetic neuropathy Diabetic nephropathy Hypothyroidism Hairy cell leukemia, in remission since 2019 Sleep apnea Past Surgical History Surgical History Comment No significant surgical history Family History Family History: FH: cancer MOTHER, FH: diabetes mellitus FATHER, Brother Sister FH: heart disease Brother Sister Past Social History Social History Comment He quit smoking 20 years ago, he used to smoke a pack a day for 20 years He denies alcohol and recreational drug use His PCP is at the [facility] He sees discharge specialist for diabetes mellitus type 2 He does not follow up with his oncologist currently He lives with his at home He can ambulate independently Lives with: Spouse Lives In: Home Occupation: retired ROS ROS Constitutional: Reports dizziness, No fever, chills, weight gain or loss Eyes: No pain, erythema, discharge, blurring of vision ENT: No sore throat, epistaxis, tinnitus Cardiovascular: No chest pain, palpitations, syncope, lower extremity edema, paroxysmal nocturnal dyspnea Respiratory: No Shortness of breath and cough, No hemoptysis. Gastrointestinal: No Abdominal pain, vomiting,nausea,constipation,diarrhea. Normal appetite. No hematemesis or melena. Musculoskeletal: No Swelling, pain in bilateral lower legs. Integumentary: No change in skin, hair, nails. No swelling, bruising, abrasions Neurologic: Reports weakness and slurred speech, No headache, neck pain, numbness or tingling of the extremities, Psychiatric: No delusions, depression, loss of interest in normal activity or change in sleep pattern, hallucinations, suicidal ideations Endocrine: No fatigue, no weakness. polydipsia, polyuria, change in appetite, heat or cold intolerance, sweating, dry skin Hematological: No bleeding, petechiae, bruising Allergies: No asthma or urticaria Exam Vitals: Vital Signs Date Time Temp Pulse Resp B/P (MAP) Pulse Ox O2 Delivery O2 Flow Rate FiO2 09/07/25 00:29 60 14 134/81 (98) 97 0 09/06/25 21:52 97.3 General: Awake , alert, and oriented x4, resting comfortably in the bed, in no acute distress HEENT: Atraumatic, normocephalic, EOMI, anicteric sclera ; pink conjunctiva Neck: Trachea midline. Supple, full range of motion, no JVD Cardiac: Regular rhythm, regular rate with no murmurs all over the precordium. Respiratory: Equal breath sounds bilaterally, no tachypnea, no wheezing ,rub or rales, Chest wall is symmetric and without deformity. Gastrointestinal: Abdomen symmetric, non-distended, soft, non-tender, normal bowel sounds x4 quadrant, normoactive, no hepatosplenomegaly Musculoskeletal: No pedal edema, no cyanosis Neurological: Speech is mildly slurred, No motor deficit, No sensory deficit except on bilateral toes, diminished reflexes, cerebellar intact. Cranial nerves II-XII intact. Skin: Warm and dry Diagnostic Data Last Recorded Lab Results: 09/06/25220709/06/252207 Diagnostic Data: Laboratory Tests Test 09/06/25 22:08 Prothrombin Time 11.1 SECONDS (9.0-12.0) INR International Normalized Ratio 1.1 INR Activated Partial Thromboplast Time 29 SECONDS (22-32) Coagulation Comments Advance Care Planning Advanced Care plannin - 30 Minutes (Full code) Additional Plan Acute ischemic stroke Patient has symptoms of slurred speech and dizziness He is on aspirin 81 mg, Plavix 75 mg and was discharged on rosuvastatin [address] head shows no evidence of acute intracranial abnormality CTA head and neck shows widely patent carotid and vertebral arteries Previous CTA on September 03 showed 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 Started lispro 10 units with meals along with high-dose hyperglycemia hypoglycemia protocol Monitor glucose and adjust insulin accordingly BRENT, most likely prerenal 2/2 dehydration Vasomotor nephropathy Creatinine is elevated-1.6, baseline creatinine-1.2 BUN is elevated-19 BUN/Cr is normal On NS at 70 mL/hour Follow up urine lytes Hypothyroidism TSH elevated, normal T4 Continued home medication Synthroid 88 mcg Hairy cell leukemia, in remission CBC normal I spent a total of 18 minutes reviewing various resuscitative measures/ACP with the patient. The patient decided to be full code. Code status: Full code DVT prophylaxis: SCD Pain management: Tylenol p.r.n. Diet/nutrition: Carb controlled diet Prognosis: Guarded Disposition: Follow up MRI head, continue dual antiplatelet therapy, neuro checks q.4h, monitor glucose, PT eval and DC plan Resident attestation: The patient note has been reviewed and supervised by senior residents PGY-2/ PGY-3. Patient was seen, examined and discussed with attending physician, Dr. Morenita Damico MD Internal Medicine resident, PGY-1 Pt was seen and discussed with the resident team Agree with assessment and plan as documented Date of Service: Sep 07, 2025 Billing Provider: BALA HANSEN MD, PREETHI, RES Sep 07, 2025 00:33 BALA HANSEN MD Sep 07, 2025 11:00
[2025-09-07 01:10] LABS: PHOSPHORUS 3.3 MG/DL (2.3-4.5); PRO BRAIN NATRIURETIC PEPTIDE 59.0 PG/ML (0-450)
[2025-09-07 01:48] LABS: LEUKOCYTE ESTERASE ,URINE NEGATIVE (Neg); NITRITES, URINE NEGATIVE (Neg); OCCULT BLOOD,URINE NEGATIVE (Neg)
[2025-09-07] MEDS ORDERED: glucagon, human recombinant 1mg kit SUBCUT PRN (01:50)
[2025-09-07] MEDS ORDERED: DEXTROSE 15 GM of carb/4 tabs (each vial/BOTTLE has 4 tablets) PO PRN ×2 (01:50)
[2025-09-07] MEDS ORDERED: dextrose 50%-water 50ml dispensing syringe IV PRN ×2 (01:50)
[2025-09-07 01:54] LABS: UA COLLECTION TYPE URINAL
[2025-09-07] MEDS: normal saline 1000ml 1,000 ML IV SCH (02:29)
[2025-09-07] MEDS: INSULIN LISPRO 100 UNIT/ML INSULN.PEN MULTI-DOSE SQ SCH ×2 (07:00→07:47)
[2025-09-07] MEDS: levoTHYROXINE 88mcg tablet PO SCH (07:45)
[2025-09-07] MEDS: docusate sod 100mg capsule PO SCH (07:45)
[2025-09-07] MEDS ORDERED: INSULIN LISPRO 100 UNIT/ML INSULN.PEN MULTI-DOSE SQ SCH (08:00)
[2025-09-07] MEDS: K and/or MAG REPLACEMENT MC SCH (08:00)
--- NOTE | 2025-09-07 12:32 | RADIOLOGY REPORT ---
MRI BRAIN WITHOUT CONTRAST HISTORY: stroke COMPARISON: MR MRI HEAD on DOS: 09/05/25, CT CTA NECK/HEAD on DOS: 09/03/25 TECHNIQUE: Multi-sequence, multiplanar magnetic resonance images of the brain are reviewed. FINDINGS: Acute left pontine infarct. Scattered T2/FLAIR hyperintense foci in the periventricular and subcortical white matter, suggestive of chronic microvascular disease. The ventricles and sulci are mildly enlarged, compatible with generalized parenchymal volume loss. There is no evidence of mass or mass effect. There are no abnormal extra-axial fluid collections. The major intracranial blood vessels retain normal flow voids consistent with their patency. Trace mucosal thickening of the paranasal sinuses. Right mastoid air cell effusion. IMPRESSION: Acute left pontine infarct.
[2025-09-07 18:05] VITALS: BP 140/100; PULSE 75; RESP 18; TEMP 97.3; O2SAT 97
[2025-09-07] MEDS ORDERED: CLOP75TA34 PO (18:12)
[2025-09-07] MEDS ORDERED: LOSA25TA41 PO (18:13)
--- NOTE | 2025-09-07 19:13 | PROGRESS NOTE- Residence ---
Progress Note - Resident Providers to CC Resident Creating Document: PAMELA HANCOCK, RES ~ Antibiotic Timeout Antibiotic Ordered?: No Subjective The patient was seen and examined at bedside today. He underwent MRI which showed acute pontine stroke. Tele neurology consultation was done and recommended continuing the same treatment. Patient will require neurovascular surgery consultation after the acute episode has been stabilized after discharge. His symptoms have been waxing and waning. Objective Vital Signs Date Time Temp Pulse Resp B/P (MAP) Pulse Ox O2 Delivery O2 Flow Rate FiO2 09/07/25 18:05 97.3 75 18 140/100 (113) 97 Room Air 09/07/25 08:48 0 Result Diagram: 09/06/25220709/07/25 0009 Adult male, alert and oriented x4, not in acute distress Head: Normocephalic with an atraumatic Eyes: Pupils- 3mm, reacting to light, conjunctiva anicteric Nose and throat: No polyps, septum- normal, no mucosal ulcers Neck: Supple, no lymphadenopathy, no carotid bruit Respiratory: No use of accessory muscles of respiration, Bilateral normal vesicular breath sounds heard. No wheeze, rhochi or creps Cardiac: S1-S2 heard, rhythm regular, no gallop/murmur Abdomen: non distended, no tenderness, no organomegaly, bowel sounds - heard Extremities: no clubbing, no pedal edema, no deformities, peripheral pulses - 2+ Skin: warm and dry, no rash, no purpura Neuro: MENTAL STATUS: AAOx3 LANG/SPEECH: Fluent, intact naming, repetition & comprehension CRANIAL NERVES: II: Pupils equal and reactive, normal visual field and fundus III, IV, : EOM intact, no gaze preference or deviation V: normal VII: no facial asymmetry VIII: normal hearing to speech MOTOR: 5/5 in both upper and lower extremities REFLEXES: Diminished reflexes throughout SENSORY: Normal to touch, temperature & pin prick in all extremities except on bilateral toes COORD: Normal finger to nose and heel to pacheco, no tremor, no dysmetria Pronator drift negative Plantars - negative Coagulation Studies Laboratory Tests Test 09/06/25 22:08 Prothrombin Time 11.1 SECONDS (9.0-12.0) INR International Normalized Ratio 1.1 INR Activated Partial Thromboplast Time 29 SECONDS (22-32) Coagulation Comments Plan Plan Acute ischemic stroke Left pontine infarct, acute MRI head showed acute left pontine stroke. Tele neurology was consulted again - advised to continue dual antiplatelet therapy, statins. Patient will require neuro vascular surgery follow up after the acute episode has been stabilized after discharge. Continue aspirin 81 mg, Plavix 75 mg and atorvastatin [address] head negative for any acute intracranial abnormalities. CTA head and neck showed no large vessel high-grade stenosis of anterior circulation. There is moderate focal narrowing of proximal basilar artery with 50% stenosis. The CTA images were reviewed by BILL London at [facility] during his previous admission and they did not recommend any intervention at this time. He will continue on Plavix 75 mg daily after 21 days since he was on aspirin before. HB A1c 7.8, LDL 99. Aspiration and fall precautions in place. Neuro checks q.4h. Permissive hypertension, 160/90 mmHg for the 1st 24-48 hours. Diabetes mellitus type 2 Diabetic neuropathy HB A1c 7.8. Continue 10 units Lantus at bedtime, 10 units Humalog with meals and high-dose supplemental insulin protocol. BRENT on CKD likely secondary to vasomotor nephropathy Diabetic nephropathy Creatinine 1.60, EGFR 42. We will continue NS at 70 mL/hour. Hypothyroidism TSH elevated, normal free T4. Continue home levothyroxine 88 mcg. Hairy cell leukemia, in remission Normal CBC. Code Status: Full code DVT Prophylaxis: SCDs Analgesia/Sedation: Acetaminophen Lines/Tubes: PIV Nutrition: Carb controlled diet Prognosis: Guarded Disposition: Continue medical management. Anticipate discharge in the next 24- 48 hours. Pamela Hancock MD Internal Medicine Resident, PGY-2 The patient was seen, examined and discussed with the attending physician, Dr. Mclean. Date of Service: Sep 07, 2025 Billing Provider: DIETER MCLEAN MD,PAMELA ANAND, RES Sep 07, 2025 19:13
--- NOTE | 2025-09-07 19:32 | [facility] CONSULT REPORT ---
[place] Neuro Note # Demographics Consult Type: Acute Stroke Level 2 (4.5-24 hrs) Patient Location: Emergency Room First Name: Kleber Last Name: Chacho Date of : 1950 Age: 75 Gender: Male Facility: [facility] Time of Initial Page (): 09/07/2025 15:57 First Contact with Site (): 09/07/2025 15:57 # HPI History: Patient that was discharged yesterday with DAPT, presented again with dizziness and slurred speech. CT Head - normal, MRI today - acute left pontine infarct, MRI 2 days back - normal. CTA head and neck during last admission - 50% stenosis of proximal basilar artery. # Scores Time of exam and NIHSS (): 09/07/2025 19:12 Level of Consciousness 1a: [0] = Alert; keenly responsive LOC Questions 1b: [0] = Answers both questions correctly LOC Commands 1c: [0] = Performs both tasks correctly Best Gaze 2: [0] = Normal Visual 3: [0] = No visual loss Facial Palsy 4: [0] = Normal symmetrical movements Motor Arm Left 5a: [0] = No drift Motor Arm Right 5b: [0] = No drift Motor Leg Left 6a: [0] = No drift Motor Leg Right 6b: [0] = No drift Limb Ataxia 7: [0] = Absent Sensory 8: [0] = Normal Best Language 9: [0] = No aphasia Dysarthria 10: [0] = Normal Extinction and Inattention 11: [0] = No abnormality NIHSS Total: 0 # Assessment Impression: - Ischemic Stroke (Acute) MRI brain showed pontine stroke- will need close monitoring for permissive HTN for 24-48 hrs. Also had 50% basilar stenosis- consult with neuro-IR for possible basilar stent # Plan Thrombolytic/Intervention: NOT IV Thrombolysis or IA Intervention candidate Thrombolytic Exclusion: > 4.5 hours Intraarterial Exclusion: - no large vessel occlusion (LVO) Target Blood Pressure: - SBP < 180 - SBP > 140 Labs: - hemoglobin A1c - lipid panel - comprehensive metabolic panel - CBC Diagnostic Test: - echo without bubble study Therapy/Evaluation: - NPO until swallow evaluation - PT/OT evaluation Medication: - aspirin 81 mg PO PLUS clopidogrel (Plavix) 75 mg PO daily for 21 days, then monotherapy thereafter - start statin with goal of LDL < 70 Other: - If patient has any neurological deterioration please call me back immediately - permissive hypertension - LDL < 70 - telemetry monitoring - will need event monitor or loop recorder as outpatient if atrial fibrillation not found as inpatient - neurology referral as outpatient - I have discussed my recommendations with the referring provider Disposition: continue admission # Logistics Attestation of consult completion: The patient is located at: [facility]. Facility staff participated in the visit. I performed this telemedicine visit from my offsite office utilizing interactive 2 way audio and visual telecommunication technology at the request of the onsite emergency room provider. Total time spent in telemedicine encounter: I spent 15 minutes reviewing clinical data and/or imaging, obtaining history, examining the patient, communicating with the onsite care team, and in preparation of this report. # Demographics First Name: Kleber Last Name: Chacho Facility: [facility] Electronically signed at 09/07/2025 19:31 ([place] Time) by Feliberto Fishman MD
[2025-09-07 22:00] VITALS: BP 149/78; PULSE 60; RESP 18; TEMP 97.6; O2SAT 96
[2025-09-07] MEDS: insulin glargine (Lantus) pen - multi-dose SQ SCH (22:11)
[2025-09-08] VITALS (9 sets, daily range): BP systolic 132–157; BP diastolic 62–93; PULSE 60–85; RESP 14–18; TEMP 97.3–98.2; O2SAT 95–97
[2025-09-08 04:44] LABS: CREATININE,URINE RANDOM 96.0 MG/DL
[2025-09-08 04:48] LABS: OSMOLALITY UA 606.0 MOSM/K (50-1400)
[2025-09-08 06:26] LABS: MEAN PLATELET VOLUME 9.5 FL (7.4-10.4); RED CELL DISTRIBUTION WIDTH 13.9 % (11.5-14.5)
[2025-09-08 06:43] LABS: CREATININE 1.36 MG/DL (0.60-1.10); TOTAL CARBON DIOXIDE 24.6 MMOL/L (24-32); eCRCL 48 ML/MIN; eGFR 51 ML/MIN
[2025-09-08] MEDS: INSULIN LISPRO 100 UNIT/ML INSULN.PEN MULTI-DOSE SQ SCH ×2 (08:19→12:18)
[2025-09-08] MEDS: insulin glargine (Lantus) pen - multi-dose SQ SCH (12:21)
--- NOTE | 2025-09-08 18:02 | PROGRESS NOTE- Residence ---
Progress Note - Resident Providers to CC Resident Creating Document: PAMELA HANCOCK, RES ~ Antibiotic Timeout Antibiotic Ordered?: No Subjective The patient was seen and examined at bedside today. He has no new complaints. Gave instructions about all he has to do after discharge. Awaiting call from [facility] for recommendations on proximal basilar artery stenosis. Objective Vital Signs Date Time Temp Pulse Resp B/P (MAP) Pulse Ox O2 Delivery O2 Flow Rate FiO2 09/08/25 10:33 98.2 68 17 142/78 (99) 95 Room Air 09/07/25 08:48 0 Result Diagram: 09/08/2551909/08/25 0520 Adult male, alert and oriented x4, not in acute distress Head: Normocephalic with an atraumatic Eyes: Pupils- 3mm, reacting to light, conjunctiva anicteric Nose and throat: No polyps, septum- normal, no mucosal ulcers Neck: Supple, no lymphadenopathy, no carotid bruit Respiratory: No use of accessory muscles of respiration, Bilateral normal vesicular breath sounds heard. No wheeze, rhochi or creps Cardiac: S1-S2 heard, rhythm regular, no gallop/murmur Abdomen: non distended, no tenderness, no organomegaly, bowel sounds - heard Extremities: no clubbing, no pedal edema, no deformities, peripheral pulses - 2+ Skin: warm and dry, no rash, no purpura Neuro: MENTAL STATUS: AAOx3 LANG/SPEECH: Fluent, intact naming, repetition & comprehension CRANIAL NERVES: II: Pupils equal and reactive, normal visual field and fundus III, IV, : EOM intact, no gaze preference or deviation V: normal VII: no facial asymmetry VIII: normal hearing to speech MOTOR: 5/5 in both upper and lower extremities REFLEXES: Diminished reflexes throughout SENSORY: Normal to touch, temperature & pin prick in all extremities except on bilateral toes COORD: Normal finger to nose and heel to pacheco, no tremor, no dysmetria Pronator drift negative Plantars - negative Coagulation Studies Laboratory Tests Test 09/06/25 22:08 Prothrombin Time 11.1 SECONDS (9.0-12.0) INR International Normalized Ratio 1.1 INR Activated Partial Thromboplast Time 29 SECONDS (22-32) Coagulation Comments Plan Plan Acute ischemic stroke Left pontine infarct, acute MRI head showed acute left pontine stroke. Tele neurology was consulted again - advised to continue dual antiplatelet therapy, statins. IR consult. Patient will require neuro vascular surgery follow up after the acute episode has been stabilized after discharge. Awaiting call from [facility] for recommendations on proximal basilar artery stenosis 50%. The CTA images were reviewed by BILL London at [facility] during his previous admission and they did not recommend any intervention at that time. Continue aspirin 81 mg, Plavix 75 mg and atorvastatin [address] head negative for any acute intracranial abnormalities. He will continue on Plavix 75 mg daily after 21 days since he was on aspirin before. HB A1c 7.8, LDL 99. Aspiration and fall precautions in place. Neuro checks q.4h. Permissive hypertension, 160/90 mmHg for the 1st 24-48 hours. Diabetes mellitus type 2 Diabetic neuropathy HB A1c 7.8. Continue 20 units Lantus b.i.d., 15 units Humalog with meals and high-dose supplemental insulin protocol. BRENT on CKD likely secondary to vasomotor nephropathy Diabetic nephropathy Kidney function getting better. We will continue NS at 70 mL/hour. Hypothyroidism TSH elevated, normal free T4. Continue home levothyroxine 88 mcg. Hairy cell leukemia, in remission Normal CBC. Code Status: Full code DVT Prophylaxis: SCDs Analgesia/Sedation: Acetaminophen Lines/Tubes: PIV Nutrition: Carb controlled diet Prognosis: Guarded Disposition: Continue medical management. Awaiting call from Inter[facility] Radiology at [facility]. Possible discharge today. Pamela Hancock MD Internal Medicine Resident, PGY-2 The patient was seen, examined and discussed with the attending physician, Dr. Mclean. Date of Service: Sep 08, 2025 Billing Provider: DIETER MCLEAN MD,PAMELA ANAND, RES Sep 08, 2025 18:02
[2025-09-09 02:00] VITALS: BP 169/86; PULSE 56; RESP 12; TEMP 97.5; O2SAT 96
[2025-09-09 06:00] VITALS: BP 134/77; PULSE 59; RESP 12; TEMP 97.4; O2SAT 98
[2025-09-09 06:35] LABS: MEAN PLATELET VOLUME 9.1 FL (7.4-10.4); RED CELL DISTRIBUTION WIDTH 14.0 % (11.5-14.5)
[2025-09-09 06:40] LABS: CREATININE 1.32 MG/DL (0.60-1.10); TOTAL CARBON DIOXIDE 23.4 MMOL/L (24-32); eCRCL 50 ML/MIN; eGFR 53 ML/MIN
[2025-09-09] MEDS ORDERED: ROSU20TA98 PO (07:27)
--- NOTE | 2025-09-09 18:02 | DISCHARGE SUMMARY-Residence ---
Discharge Summary Providers to CC Resident Creating Document: STEVEN HANCOCK, RES ~ Discharge Summary Admission Diagnosis: STROKE Hospital Course DATE OF ADMISSION: 09/06/2025 DATE OF DISCHARGE: 09/09/2025 Discharge disposition: Home Imaging: CT head and CTA head and neck 09/06/2025: No acute intracranial abnormality. No acute vascular abnormality. X-ray chest 09/06/2025: No acute cardiopulmonary abnormality. MRI head 09/07/2025: Acute left pontine stroke. Discharge Diagnosis\Comment: Acute ischemic stroke Left pontine infarct, acute Proximal basilar artery stenosis Diabetes mellitus type 2 Diabetic neuropathy Diabetic retinopathy BRENT on CKD likely secondary to vasomotor nephropathy Diabetic nephropathy Hypothyroidism Hairy cell leukemia, in remission Operations\Procedures: None Consultants: Tele neurology Neuro IR at [place] Complications: None Condition on DC: Stable Changed Medications: Rosuvastatin Calcium (Rosuvastatin Calcium) 20 Mg Tablet 2 TAB PO HS for 30 Days, #60 TAB 0 Refills (Changed from: 1 TAB; 30) Continued Medications: Aspirin (Aspirin) 81 Mg Tab.chew 1 TAB.CHEW PO DAILY for 19 Days, #19 TAB.CHEW Clopidogrel Bisulfate (Clopidogrel) 75 Mg Tablet 1 TAB PO DAILY for 30 Days, #30 TAB 0 Refills Do not stop medication unless instructed by prescriber. Insulin Aspart (Novolog) 100 Unit/Ml (3 Ml) Insuln.pen 100 UNIT SQ, UNIT Insulin Glargine,Hum.rec.anlog (Toujeo Solostar) 300 Unit/Ml (1.5 Ml) Insuln.pen 80 UNITS SQ QAM Levothyroxine Sodium* (Synthroid*) 88 Mcg Tablet 1 TAB PO DAILY for 30 Days, #30 TAB Losartan Potassium (Losartan Potassium) 25 Mg Tablet 1 TAB PO DAILY for 30 Days, #30 TAB 0 Refills Metformin Hcl (Metformin Hcl) 500 Mg Tablet 1 TAB PO Q12H for 30 Days, #60 TAB 0 Refills Discharge Summary: The patient is a 75-year-old male with past medical history of hairy cell leukemia, diabetes, diabetic nephropathy, recent TIA on 09/03/2025, discharged on 09/06/2025 with dual antiplatelet therapy and statins presented back to the ED with complaints of slurred speech and dizziness. Neuro IR consultation was done during the previous admission and was recommended that no intervention was needed at that time. On evaluation in the ED during this admission, CT head was normal. CTA head and neck was also normal. MRI head showed acute left pontine stroke. Tele neurology recommended neuro IR consultation. Neuro interventional radiologist, Dr. Tucker at [place] reviewed the images and did a phone consult with me - recommended that the patient does not qualify for an intervention at this time. He needs to have a failed medical therapy before he qualifies for a procedure. She recommended that we optimize his medical management. He was monitored on telemetry and neuro checks were done q.4h. His symptoms resolved few hours after coming to the hospital. We continued his dual antiplatelet therapy with aspirin 81 mg and Plavix 75 mg daily. He also received atorvastatin daily. He worked with physical therapy and speech therapy. Aspiration and fall precautions were taken. No atrial fibrillation was caught during his hospitalization. Fluids were given for his BRENT secondary to dehydration. He reported that he drinks about 1-1.5 L per day. Instructions were given to ensure adequate hydration. On the day of discharge, the patient was stable and had no new complaints. He was eager to go home. 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 Advice at discharge: Follow up with PCP in 1 week. Get an appointment with a neurologist through your PCP in a possible neurovascular surgery appointment if required by your neurologist. You also need a loop recorder or event monitor to make sure you do not have atrial fibrillation. Please communicate with your PCP regarding this. Continue aspirin and Plavix for 19 more days and then Plavix only thereafter. Continue rosuvastatin, Crestor - lipid-lowering medication 40 mg daily. Goal LDL less than 70 (bad cholesterol). Recheck lipid panel in 3 months. I have also started you on losartan, blood pressure medication. You can stop lisinopril. Monitor blood pressures every day and maintain log. Review the log with your PCP to make those changes in medication. Ensure adequate hydration. Better control of your diabetes as necessary. Continue diet modification and exercise. Work with your PCP or rn case management for adjustments in your insulin. If you continue having symptoms after being on this medical therapy, you will need an intervention as recommended by the interventional radiologist. In the event of worsening of symptoms, call 911 or go to the ER immediately. Examination at discharge: Adult male, alert and oriented x4, not in acute distress Head: Normocephalic with an atraumatic Eyes: Pupils- 3mm, reacting to light, conjunctiva anicteric, decreased peripheral vision Nose and throat: No polyps, septum- normal, no mucosal ulcers Neck: Supple, no lymphadenopathy, no carotid bruit Respiratory: No use of accessory muscles of respiration, Bilateral normal vesicular breath sounds heard. No wheeze, rhochi or creps Cardiac: S1-S2 heard, rhythm regular, no gallop/murmur Abdomen: non distended, no tenderness, no organomegaly, bowel sounds - heard Extremities: no clubbing, no pedal edema, no deformities, peripheral pulses - 2+ Skin: warm and dry, no rash, no purpura Neuro: MENTAL STATUS: AAOx3 LANG/SPEECH: Fluent, intact naming, repetition & comprehension CRANIAL NERVES: II: Pupils equal and reactive, normal visual field and fundus III, IV, : EOM intact, no gaze preference or deviation V: normal VII: no facial asymmetry VIII: normal hearing to speech MOTOR: 5/5 in both upper and lower extremities REFLEXES: Diminished reflexes throughout SENSORY: Normal to touch, temperature & pin prick in all extremities except on bilateral toes COORD: Normal finger to nose and heel to pacheco, no tremor, no dysmetria Pronator drift negative Plantars - negative Vital Signs Date Time Temp Pulse Resp B/P (MAP) Pulse Ox O2 Delivery O2 Flow Rate FiO2 09/09/25 07:49 Room Air 0.0 09/09/25 06:00 97.4 59 12 134/77 (96) 98 Laboratory Tests Test 09/07/25 19:14 09/07/25 22:08 09/08/25 03:00 09/08/25 05:20 Glucometer 194 mg/dl 233 mg/dl Urine Eosinophils No eos /HPF Urine Osmolality 606 MOSM/K Urine Random Creatinine 96.0 MG/DL Urine Random Sodium 136 MEQ/L White Blood Count 6.3 X10'3 Red Blood Count 4.70 X10'6 Hemoglobin 14.4 g/dl Hematocrit 42.0 % Mean Corpuscular Volume 89.4 FL Mean Corpuscular Hemoglobin 30.7 PG Mean Corpuscular Hemoglobin Concent 34.3 g/dL Red Cell Distribution Width 13.9 % Platelet Count 193 X10'3 Mean Platelet Volume 9.5 FL Neutrophils (%) (Auto) 59.6 % Lymphocytes (%) (Auto) 25.6 % Monocytes (%) (Auto) 9.7 % Eosinophils (%) (Auto) 4.2 % Basophils (%) (Auto) 0.9 % Neutrophils # (Auto) 3.8 X10'3 Lymphocytes # (Auto) 1.6 X10'3 Monocytes # (Auto) 0.6 X10'3 Eosinophils # (Auto) 0.3 X10'3 Basophils # (Auto) 0.1 X10'3 CBC Comment Sodium Level 140 MMOL/L Potassium Level 3.9 MMOL/L Chloride Level 107 MMOL/L Carbon Dioxide Level 24.6 MMOL/L Anion Gap 8 Blood Urea Nitrogen 16 MG/DL Creatinine 1.36 MG/DL Estimated GFR/1.73 m2 51 ML/MIN BUN/Creatinine Ratio 11.8 Glucose Level 282 MG/DL Calcium Level 8.6 MG/DL Albumin 3.0 G/DL Chemistry Comments Test 09/08/25 07:00 09/08/25 11:29 09/08/25 16:44 09/08/25 22:06 Glucometer 259 mg/dl 352 mg/dl 209 mg/dl 223 mg/dl Test 09/09/25 05:58 09/09/25 07:15 White Blood Count 7.1 X10'3 Red Blood Count 4.72 X10'6 Hemoglobin 14.3 g/dl Hematocrit 42.4 % Mean Corpuscular Volume 89.9 FL Mean Corpuscular Hemoglobin 30.4 PG Mean Corpuscular Hemoglobin Concent 33.8 g/dL Red Cell Distribution Width 14.0 % Platelet Count 200 X10'3 Mean Platelet Volume 9.1 FL Neutrophils (%) (Auto) 61.5 % Lymphocytes (%) (Auto) 22.1 % Monocytes (%) (Auto) 10.9 % Eosinophils (%) (Auto) 3.8 % Basophils (%) (Auto) 1.7 % Neutrophils # (Auto) 4.4 X10'3 Lymphocytes # (Auto) 1.6 X10'3 Monocytes # (Auto) 0.8 X10'3 Eosinophils # (Auto) 0.3 X10'3 Basophils # (Auto) 0.1 X10'3 CBC Comment Sodium Level 142 MMOL/L Potassium Level 3.7 MMOL/L Chloride Level 110 MMOL/L Carbon Dioxide Level 23.4 MMOL/L Anion Gap 9 Blood Urea Nitrogen 14 MG/DL Creatinine 1.32 MG/DL Estimated GFR/1.73 m2 53 ML/MIN BUN/Creatinine Ratio 10.6 Glucose Level 170 MG/DL Calcium Level 8.3 MG/DL Albumin 3.0 G/DL Chemistry Comments Glucometer 194 mg/dl The patient was seen and evaluated with attending physician, Dr. Mclean on the day of discharge. Time spent on discharge 35 minutes. *Problems/Diagnosis: (1) Cerebrovascular accident Status: Acute (2) BRENT (acute kidney injury) Total Time Spent on D/C: > 30 Minutes Date of Service: Sep 09, 2025 Billing Provider: DIETER MCLEAN MD, SOWMYA MANJARI, RES Sep 09, 2025 17:44
== END 2025-09-09 08:56 | disposition home or self-care (01) | DRG 64 ==
LOC: ER 21:50 → ED HOLD 23:54 → EDBEDREQ 09-07 16:53 → ORTHO 4S 09-07 18:03
PROVIDERS: ADMIT Internal Medicine; ATTEND Family Medicine
DX: I63.89 Other cerebral infarction (principal); N17.0 Acute kidney failure with tubular necrosis; C91.41 Hairy cell leukemia, in remission; E03.9 Hypothyroidism, unspecified; I12.9 Hypertensive chronic kidney disease with stage 1 through stage 4 chronic kidney disease, or unspecified chronic kidney disease; E11.22 Type 2 diabetes mellitus with diabetic chronic kidney disease; N18.9 Chronic kidney disease, unspecified; E11.21 Type 2 diabetes mellitus with diabetic nephropathy
CPT/HCPCS: 36415; 70450; 70496; 70498; 70551; 71045; 80048; 81003; 82570; 82948; 83735; 83880; 83935; 84100; 84132; 84300; 84484; 85025; 85610; 85730; 87081; 87207; 92508; 92523; 93005; 97110; 97116; 97162; 99291; G0378; J1815; J7030